=== PATIENT | male | born 1935 | race Caucasian/White ===

== ENCOUNTER → 2016-05-27 | Outpatient (CLI) | payer MEDICARE, OTHER ==
[~2016-05-27] MED LIST: ASPIRIN81 MG PO; COLON HERBAL C1 EACH PO; FIBER THERAPY500 MG PO; FLOMAX0.4 MG PO; MIRALAX17 GM PO; NITROSTAT0.4 MG SL; NORCO 325-5 MG1 TAB PO; PROBIOTIC1 EAC1 PO; TOPROL XL25 MG PO; ULTRAM50 MG PO
== END | disposition short-term general hospital (02) ==
LOC: CLPAIN 08:04
DX: M47.27 Other spondylosis with radiculopathy, lumbosacral region (principal)

== ENCOUNTER 2016-06-17 11:05 | Day surgery (SDC) | payer MEDICARE, OTHER ==
[~2016-06-17] VITALS: Ht 175.3 cm; Wt 100.9 kg
== END 2016-06-17 14:05 | disposition short-term general hospital (02) ==
LOC: SURGOP 11:05
PROC: 015B3ZZ Destruction of Lumbar Nerve, Percutaneous Approach (ICD-10-PCS; principal; 2016-06-17)
DX: M47.816 Spondylosis without myelopathy or radiculopathy, lumbar region (principal); I10 Essential (primary) hypertension; G43.909 Migraine, unspecified, not intractable, without status migrainosus; K21.9 Gastro-esophageal reflux disease without esophagitis; M19.90 Unspecified osteoarthritis, unspecified site; Z86.73 Personal history of transient ischemic attack (TIA), and cerebral infarction without residual deficits; Z88.5 Allergy status to narcotic agent; Z79.82 Long term (current) use of aspirin; Z79.891 Long term (current) use of opiate analgesic; Z79.899 Other long term (current) drug therapy; Z90.49 Acquired absence of other specified parts of digestive tract; Z98.41 Cataract extraction status, right eye; Z98.42 Cataract extraction status, left eye; Z98.890 Other specified postprocedural states
CPT/HCPCS: J1885; J2250; J3010

== ENCOUNTER → 2016-07-01 | Outpatient (CLI) | payer MEDICARE, OTHER | END | disposition short-term general hospital (02) | LOC: CLPAIN 08:38 | DX: M47.897 Other spondylosis, lumbosacral region (principal); M70.61 Trochanteric bursitis, right hip; M25.552 Pain in left hip; G60.3 Idiopathic progressive neuropathy | CPT/HCPCS: J1030 ==